=== PATIENT | female | born 1945 | race African-American/Black ===

== ENCOUNTER 2021-03-06 16:01 | Emergency (ER) | payer OTHER ==
[~2021-03-06] VITALS: Ht 167.6 cm; Wt 98.4 kg
[~2021-03-06 16:01] MED LIST: ADULT LOW DOSE81 MG PO; BACTRIM DS TAB1 EACH PO; CLEAR EYES COMP15 ML OPHTHALMIC; HYDROCODON-ACE1 EAC5 PO; MECLIZINE HCL12.5 MG PO; NAPROSYN500 MG PO; NORCO 5-325 TA1 EACH PO; OMEGA 3 FISH OIL PO; PRILOSEC40 MG PO; TOPROL XL100 MG PO; TRAMADOL 50 MG50 MG PO; ZOFRAN ODT4 MG PO; ZOFRAN4 MG PO
[2021-03-06] MEDS ORDERED: NAPROSYN500 M1 PO (16:12)
[2021-03-06] MEDS ORDERED: MELOXICAM15 MG PO (16:12)
[2021-03-06] MEDS ORDERED: NAPROSYN500 MG PO (17:48)
[2021-03-06 18:20] VITALS: BP 167/91
== END 2021-03-06 18:20 | disposition home or self-care (01) ==
LOC: ER 16:01
DX: S00.03XA Contusion of scalp, initial encounter (principal); I10 Essential (primary) hypertension; E78.5 Hyperlipidemia, unspecified; Z79.1 Long term (current) use of non-steroidal anti-inflammatories (NSAID); Z79.891 Long term (current) use of opiate analgesic; Z79.899 Other long term (current) drug therapy; Z88.8 Allergy status to other drugs, medicaments and biological substances; W18.30XA Fall on same level, unspecified, initial encounter; Y93.89 Activity, other specified; Y92.89 Other specified places as the place of occurrence of the external cause; Y99.8 Other external cause status